=== PATIENT | female | born 1995 | race Caucasian/White ===

== ENCOUNTER 2024-09-04 12:51 | Emergency (ER) | payer BC ==
[~2024-09-04] VITALS: Ht 160 cm; Wt 77.3 kg
[~2024-09-04 12:51] MED LIST: ABILIFY 10MG TA10 MG PO; ABILIFY5 MG PO; BUSPAR5 MG PO; MINIPRESS 1M1 MG/CAP PO; QELBREE200 MG PO; REVIA 50MG TABL50 MG PO; ZOLOFT 50MG50 MG PO
[2024-09-04 13:01] VITALS: BP 109/74; TEMP 98.3
[2024-09-04 14:59] VITALS: PULSE 55
== END 2024-09-04 15:00 | disposition home or self-care (01) ==
LOC: COL.ER 12:51
DX: A15.9 Respiratory tuberculosis unspecified (principal); S50.12XA Contusion of left forearm, initial encounter; X58.XXXA Exposure to other specified factors, initial encounter